=== PATIENT | male | born 1955 | race Caucasian/White ===

== ENCOUNTER 2017-03-24 21:00 | Emergency (ER) | payer BC ==
[2017-03-24 21:05] VITALS: BP 139/86
--- NOTE | 2017-03-24 21:38 | UC ---
Respiratory Complaint HPI - HPI Summary HPI Summary: right mid axilla rib pain after coughing hard earlier this week, no sob, no trauma injury - History of Current Complaint Chief Complaint: UCUpperExtremity Stated Complaint: RIB COMPLAINT Time Seen by Provider: 03/24/17 21:37 Hx Obtained From: Patient Onset/Duration: Sudden Onset, Lasting Days, Still Present Timing: Constant Severity Initially: Moderate Severity Currently: Moderate Aggravating Factors: Nothing Alleviating Factors: Nothing Associated Signs And Symptoms: Positive: Negative - Allergies/Home Medications Allergies/Adverse Reactions: Allergies Allergy/AdvReac Type Severity Reaction Status Date / Time Ciprofloxacin [From Cipro] Allergy Unknown Unknown Verified 05/25/14 16:11 Reaction Details PMH/Surg Hx/FS Hx/Imm Hx Previously Healthy: No - enviromental allergies GI/ History: Gastroesophageal Reflux - Surgical History Surgical History: Yes Surgery Procedure, Year, and Place: left inguinal hernia repair. tonsillectomy - Family History Known Family History: Positive: None - Social History Occupation: Employed Full-time Lives: With Family Alcohol Use: Occasionally Substance Use Type: None Smoking Status (MU): Never Smoked Tobacco Review of Systems Constitutional: Negative Skin: Negative Eyes: Negative ENT: Negative Respiratory: Negative Cardiovascular: Negative Gastrointestinal: Negative Genitourinary: Negative Motor: Negative Neurovascular: Negative Musculoskeletal: Arthralgia - right mid axilla rib pain Neurological: Negative Psychological: Negative All Other Systems Reviewed And Are Negative: Yes Physical Exam Triage Information Reviewed: Yes Appearance: Well-Appearing, No Pain Distress, Obese Vital Signs: Initial Vital Signs Temp 98.3 F 03/24/17 21:01 Pulse 88 03/24/17 21:01 Resp 18 03/24/17 21:01 BP 139/86 03/24/17 21:01 Pulse Ox 98 03/24/17 21:01 Vital Signs Reviewed: Yes Eye Exam: Normal Eyes: Positive: Conjunctiva Clear ENT Exam: Normal ENT: Positive: Normal ENT inspection, Hearing grossly normal, Pharynx normal. Negative: Nasal congestion, Nasal drainage, Trismus, Muffled/hoarse voice Dental Exam: Normal Neck exam: Normal Neck: Positive: Supple, Nontender, No Lymphadenopathy Respiratory Exam: Normal Respiratory: Positive: Chest non-tender, Lungs clear, Normal breath sounds, No respiratory distress, No accessory muscle use Cardiovascular Exam: Normal Cardiovascular: Positive: RRR, No Murmur, Pulses Normal, Brisk Capillary Refill Abdominal Exam: Normal Abdomen Description: Positive: Nontender, No Organomegaly, Soft Bowel Sounds: Positive: Present Musculoskeletal Exam: Normal Musculoskeletal: Positive: Strength Intact, ROM Intact, No Edema Neurological Exam: Normal Neurological: Positive: Alert, Muscle Tone Normal, Fatigued Psychological Exam: Normal Skin Exam: Normal UC Diagnostic Evaluation - Laboratory O2 Sat by Pulse Oximetry: 98 - Radiology Xray Interpretation: No Acute Changes Radiology Interpretation Completed By: Radiologist Respiratory Course/Dx - Course Course Of Treatment: ice/heat for comfort pain control, cough and deep breath follow with pcp - Differential Dx/Diagnosis Differential Diagnosis/HQI/PQRI: Asthma, Lower Resp Infection, Other - contusion fracture ribs Provider Diagnoses: contusion right ribs Discharge - Discharge Plan Condition: Stable Disposition: HOME Patient Education Materials: Ibuprofen (By mouth), Ice Pack Application (ED) Forms: *Work Release Referrals: Parul Berry MD [Primary Care Provider] - If Needed
--- NOTE | 2017-03-24 22:05 | RAD ---
Indication: Right-sided chest pain 3 views of the right ribs PA view of the chest demonstrates no definite fracture. No pneumothorax is noted. No alveolar consolidation is noted. Lung blair demonstrate no mediastinal shift. Heart is of normal size and configuration. No pneumothorax is noted. IMPRESSION: No fracture of the right ribs is noted.
== END 2017-03-24 22:16 | disposition home or self-care (01) ==
LOC: UCEAST 21:00
DX: S30.1XXA Contusion of abdominal wall, initial encounter (principal); Z88.3 Allergy status to other anti-infective agents; K21.9 Gastro-esophageal reflux disease without esophagitis; X58.XXXA Exposure to other specified factors, initial encounter
CPT/HCPCS: 99211; G0463

== ENCOUNTER 2017-10-25 10:16 | Emergency (ER) | payer BC ==
[2017-10-25] MEDS ORDERED: hydrOXYzine HCL TAB* 50 MG PO ONE (10:48)
[2017-10-25 12:50] VITALS: BP 120/82
--- NOTE | 2017-10-25 21:01 | ED ---
eBn Nagy Julia, scribed for Good Buckner MD on 10/25/17 at 1043 . Respiratory - HPI Summary HPI Summary: This patient is a 62 year old M presenting to [facility] with a chief complaint of dry throat and difficulty swallowing after excessive inhaler use this morning. He states he took two extras puffs of his inhaler accidentally. He reports a lot of mucous at baseline, but now he is having a hard time swallowing. He states he is recovering from a recent respiratory infection, and suffers from frequent respiratory infections. Patient has been taking 10mg of Prednisone, but has just changed to 5mg yesterday. Patient has hx of asthma. - History of Current Complaint Chief Complaint: EDGeneral Stated Complaint: THROAT PAIN Hx Obtained From: Patient Onset/Duration: Sudden Onset, Lasting Hours Timing: Constant Pain Intensity: 0 Aggravating Factor(s): Other - excessive inhaler use Associated Signs and Symptoms: URI - dry throat and difficulty swallowing Related History: Similar Episode/Dx as - URI and asthma - Allergy/Home Medications Allergies/Adverse Reactions: Allergies Allergy/AdvReac Type Severity Reaction Status Date / Time ciprofloxacin Allergy Unknown Verified 10/25/17 10:51 Reaction Details esomeprazole [From Nexium] Allergy Rash Verified 10/25/17 10:51 PMH/Surg Hx/FS Hx/Imm Hx Endocrine/Hematology History: Denies: Hx Diabetes, Hx Thyroid Disease Cardiovascular History: Reports: Other Cardiovascular Problems/Disorders - HIGH PAC Denies: Hx Congestive Heart Failure, Hx Hypertension Respiratory History: Reports: Hx Asthma, Hx Sleep Apnea, Other Respiratory Problems/Disorders - frequent URI Denies: Hx Chronic Obstructive Pulmonary Disease (COPD) GI History: Reports: Hx Gastroesophageal Reflux Disease Denies: Hx Ulcer - Surgical History Surgery Procedure, Year, and Place: left inguinal hernia repair. tonsillectomy Infectious Disease History: No Infectious Disease History: Denies: Hx Clostridium Difficile, Hx Hepatitis, Hx Human Immunodeficiency Virus (HIV), Hx of Known/Suspected MRSA, Hx Shingles, Hx Tuberculosis, Hx Known/ Suspected VRE, Hx Known/Suspected VRSA, History Other Infectious Disease, Traveled Outside the [place] in Last 30 Days - Family History Known Family History: Negative: Respiratory Disease - Social History Alcohol Use: Occasionally Substance Use Type: Reports: None Hx Tobacco Use: No Smoking Status (MU): Never Smoked Tobacco Review of Systems Negative: Fever Positive: Other - dry throat and difficulty swallowing All Other Systems Reviewed And Are Negative: Yes Physical Exam - Summary Physical Exam Summary: Appearance: The patient is well-nourished in no acute distress and in no acute pain. Skin: The skin is warm and dry and skin color reflects adequate perfusion. HEENT: The head is normocephalic and atraumatic. The pupils are equal and reactive. The conjunctivae are clear and without drainage. Nares are patent and without drainage. Mouth reveals moist mucous membranes and the throat is without erythema and exudate. The external ears are intact. The ear canals are patent and without drainage. The tympanic membranes are intact. Neck: the neck is supple with full range of motion and non-tender. There are no carotid bruits. There is no neck vein distension. Respiratory: Chest is non-tender. Lungs are clear to auscultation and breath sounds are symmetrical and equal. Cardiovascular: Heart is mildly tachycardic and regular rhythm. There is no murmur or rub auscultated. There is no peripheral edema and pulses are symmetrical and equal. Abdomen: The abdomen is soft and non-tender. There are normal bowel sounds heard in all four quadrants and there is no organomegaly palpated. Musculoskeletal: There is no back tenderness noted. Extremities are non-tender with full range of motion. There is good capillary refill. There is no peripheral edema or calf tenderness elicited. Neurological: Patient is alert and oriented to person, place and time. The patient has symmetrical motor strength in all four extremities. Cranial nerves are grossly intact. Deep tendon reflexes are symmetrical and equal in all four extremities. Psychiatric: The patient has an appropriate affect and does not exhibit any anxiety or depression. Triage Information Reviewed: Yes Vital Signs On Initial Exam: Initial Vitals Temp Pulse Resp BP Pulse Ox 97.8 F 118 22 198/104 97 10/25/17 10:21 10/25/17 10:21 10/25/17 10:21 10/25/17 10:21 10/25/17 10:21 Vital Signs Reviewed: Yes Diagnostics - Vital Signs Vital Signs Temp Pulse Resp BP Pulse Ox 10/25/17 10:39 123 100 10/25/17 10:38 181/102 10/25/17 10:21 97.8 F 118 22 198/104 97 - Laboratory Lab Statement: Any lab studies that have been ordered have been reviewed, and results considered in the medical decision making process. Disposition - Course Course Of Treatment: Mr. Pastrana presented very anxious after using too much of his inhaler. He was C/O a dry throat with inability to swallow. He has been fighting a URI and is at the tail end. He was hypertensive and tachycardia on arrival with clear lungs. I gave him vistaril for its antihistamine effects as well as anxiolytic and he improved and his vitals normalized. - Diagnoses Provider Diagnoses: Medication reaction Discharge - Discharge Plan Condition: Stable Disposition: HOME Patient Education Materials: How to Use a Dry-Powder Inhaler (ED) Referrals: Parul Berry MD [Primary Care Provider] - If Needed The documentation as recorded by the Ben mercado Julia accurately reflects the service I personally performed and the decisions made by me, Good Buckner MD.
== END 2017-10-25 12:58 | disposition home or self-care (01) ==
LOC: ED 10:16
DX: T50.995A Adverse effect of other drugs, medicaments and biological substances, initial encounter (principal); J45.909 Unspecified asthma, uncomplicated; K21.9 Gastro-esophageal reflux disease without esophagitis
CPT/HCPCS: 99282; A9270-GY

== ENCOUNTER 2018-04-15 19:15 | Emergency (ER) | payer BC ==
--- OUTSIDE RECORDS SUMMARY | 2018-04-15 19:19 | XMS REPORT ---
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 Parul Berry MD Primary Care Physician Unavailable Payers Type Date Identification Numbers Payment Provider Subscriber Commercial Policy Number: [id number] [employer] Rigoberto Pastrana PayID: [id number] [place] [address] Medigap Part B Expires: 2017 Policy Number: [facility] Rigoberto Styles [id number] Ppo Victoriano PayID: [id number] [place] [address] Problems Description No Information Family History Date Family Member(s) Problem(s) Comments Father Unknown Father due to Natural Causes () Mother rheumatic fever Mother due to CHF () Siblings 2 half siblings, medical hx unknown Social History Type Date Description Comments Marital Status Significant Other 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 Cigarette Use Never Smoked Cigarettes ETOH Use Rarely consumes alcohol Smoking Patient has never smoked Recreational Drug Use Denies Drug Use Daily Caffeine Consumes on average 5-10 cups of regular coffee per day Exercise Type/Frequency Exercises regularly Allergies, Adverse Reactions, Alerts Date Description Reaction Status Severity Comments 12/25/2017 Cipro active 12/25/2017 Nexium active 04/10/2018 Advair Throat felt scratching active Moderate Throat Also Zenda Like It Was Starting To Close Medications Medication Date Status Form Strength Qnty SIG Indications Ordering Provider Flovent HFA 01/09/ Active Aerosol 110mcg/Act 36gm 2 puffs Siobhan 2017 twice a day MD Alee Venturadine HCL / Active Tablets 150mg Take 1 To 2 Unknown 0000 Tablets By Mouth Every Day Fluticasone / Active Suspension 50mcg/Act 2 sprays Jamal, Propionate 0000 qhs Parul Sauceda MD Proair HFA / Active Aerosol 108(90Base 2 puffs prn Jamal, 0000 ) mcg/Act Parul Sauceda MD Allergy / Active 1 injection Unknown Injections 0000 per week Xyzal 01/21/ Hx Solution 2.5mg/5ML as directed Siobhan 2018 - Audrey, 04/09/ 2017 Escitalopram / Hx Tablets 10mg Take 1 Unknown Oxalate 0000 - Tablet By 01/08/ Mouth Every 2017 Day Vital Signs Date Vital Result Comment 04/10/2018 Height 70.25 inches 5'10.25" Weight 254.12 lb Heart Rate 76 /min BP Systolic Sitting 110 mmHg Lue large cuff BP Diastolic Sitting 76 mmHg Lue large cuff Respiratory Rate 16 /min O2 % BldC Oximetry 98 % BMI (Body Mass Index) 36.2 kg/m2 01/21/2018 Height 70.25 inches 5'10.25" Weight 258.50 lb Heart Rate 92 /min BP Systolic Sitting 122 mmHg Rue large cuff BP Diastolic Sitting 82 mmHg Rue large cuff Respiratory Rate 16 /min O2 % BldC Oximetry 95 % BMI (Body Mass Index) 36.8 kg/m2 12/25/2017 Height 70.25 inches 5'10.25" Weight 255.00 lb Heart Rate 76 /min BP Systolic Sitting 138 mmHg BP Diastolic Sitting 98 mmHg Respiratory Rate 14 /min O2 % BldC Oximetry 95 % BMI (Body Mass Index) 36.3 kg/m2 Neck Circumference in inches 17.5 Results Description No Information Procedures Date CPT Code Description Status 01/08/2018 15519 Diffusing Capacity Completed 01/08/2018 84377 Plethysmography Determination Lung Volumes & Per Airway Completed Resist 01/08/2018 96784 Pulmonary Function><Bronchodil Completed 11/09/2017 88792 Holter Monitor Review (24 hr)dr zee & interp only Completed 02/23/2012 33982 Polysomnography Sleep Staging 4+ Parameters W/Cpap Completed 02/23/2012 43672 Polysomnography Sleep Staging 4+ Parameters W/Cpap Completed 05/28/2007 55257 EKG, Interpretation Only Completed 05/28/2007 70909 EKG, Interpretation Only Completed Encounters Type Date Location Provider CPT E/M Dx Office Visit 01/21/2018 [facility] [place] [address] J45.30 1:15p [facility] G47.33 E66.09 Office Visit 12/25/2017 2:00p [facility] [place] [address] G47.33 [facility] J45.909 K21.9 E66.09 Z68.36 Office Visit 03/08/2012 3:41p [facility], [address] 327.23 Disorder Center M.D. Plan of Care Future Appointment(s):07/11/2018 3:00 pm - Siobhan Ventura MD at [facility]04/10/2018 - Gilma Long, DNP, RN, MAINTENANCE SUPERVISOR MECHANICAL-BCG47.33 Obstructive sleep apnea (adult) (pediatric)New Orders:Sleep-HomecareComments: Sleep Apnea - 12/31/17 HST AHI 36.7/hour, seb oxygen 78% (<90% 213.7 min) BMI 36.8, wt 258# OnCPAP auto AHI 1.7/hourRecommendations:Continue PAP device, Benefitting and compliant with treatment. Cleaning Wipe off mask daily (baby wipe-no scent, or warm water) Clean mask, tubing, filter, and water chamber weekly in mild no scent dish soap and water. Hang to dry. So-Clean is an option (not covered by insurance) If you have any sleepiness while driving you MUST avoid operating a vehicle or machinery. If you have difficulty with your equipment, or need to replace your mask or hoses, please contact your homecare agency. A weight change of 20 pounds or more may have an effect on your equipment; if you are experiencing problems please call for an appointment. If you have any further questions, please call the [facility] at [phone].J45.30 Mild persistent asthma, uncomplicatedFollow up:[address] VenturaRecommendations:Continue the current medications. Discuss with Dr. Ventura at your next visit stepping down on dose if appropriate. Sometimes after the first heavy al you might be able to try a lower dose.R09.02 HypoxemiaNew Orders:Pulse Oximetry OvernightRecommendations:Overnight pulse oximetry, call one week after completed for results, may need to adjust the PAP setting.Z68.36 Body mass index (BMI) 36.0-36.9, adultRecommendations:Avoid weight gain
[2018-04-15 19:23] VITALS: BP 123/82
[2018-04-15] MEDS ORDERED: oxyCODONE TAB* 5 MG TAB PO ONE (19:55)
[2018-04-15] MEDS ORDERED: HYDROcodone/ACETAMIN 5-325 MG* 1 TAB PO ONE ×2 (19:56→19:58)
--- NOTE | 2018-04-15 20:04 | UC ---
UC Dental HPI - HPI Summary HPI Summary: Patient complaining of left lower dental pain starting Sunday. Denies fever, sore throat, N/V, purulent drainage, loss of jaw range of motion, neck pain, ear pain. Patient able to tolerate soft diet and fluids. Patient contacted dentist today, started on clindamycin today. Patient has been taking ibuprofen and Tylenol for pain with only mild relief. Patient will attempt to see dentist tomorrow, but is asking for pain relief for this evening. Medical history is asthma, sleep apnea. - History of Current Complaint Chief Complaint: UCDentalProblem Stated Complaint: DENTAL PAIN Time Seen by Provider: 04/15/18 19:28 Hx Obtained From: Patient, Family/Manager Group Onset/Duration: Gradual Onset Severity: Moderate Pain Intensity: 7 Pain Scale Used: 0-10 Numeric Aggravating Factor(s): Chewing Alleviating Factor(s): OTC Meds - Allergies/Home Medications Allergies/Adverse Reactions: Allergies Allergy/AdvReac Type Severity Reaction Status Date / Time fluticasone Allergy Severe THROAT Verified 04/16/18 22:21 [From Advair Diskus] TIGHTENING salmeterol Allergy Severe THROAT Verified 04/16/18 22:21 [From Advair Diskus] TIGHTENING ciprofloxacin Allergy Unknown Verified 04/16/18 22:21 Reaction Details esomeprazole [From Nexium] Allergy Rash Verified 04/16/18 22:21 Home Medications: Home Medications Acetaminophen [Extra Strength Non-Aspirin] 500 mg PO Q6HR PRN 04/15/18 [History] Clindamycin Cap(NF) [Clindamycin Cap 300 mg Cap(NF)] 300 mg PO TID 04/15/18 [ History Confirmed 04/15/18] Ibuprofen TAB* [Advil TAB*] 600 mg PO Q6HR PRN 04/15/18 [History] PMH/Surg Hx/FS Hx/Imm Hx Previously Healthy: Yes Respiratory History: Asthma - Surgical History Surgical History: Yes Surgery Procedure, Year, and Place: left inguinal hernia repair. tonsillectomy - Family History Known Family History: Positive: None Negative: Respiratory Disease - Social History Alcohol Use: Occasionally Substance Use Type: None Smoking Status (MU): Never Smoked Tobacco Review of Systems Constitutional: Negative Skin: Negative Eyes: Negative ENT: Dental Pain Respiratory: Negative Cardiovascular: Negative Gastrointestinal: Negative Genitourinary: Negative Motor: Negative Neurovascular: Negative Musculoskeletal: Negative Neurological: Negative Psychological: Negative Is Patient Immunocompromised?: No All Other Systems Reviewed And Are Negative: Yes Physical Exam - Summary Physical Exam Summary: No evidence of dental abscess. No oral lesions. Triage Information Reviewed: Yes Appearance: Well-Appearing Vital Signs: Initial Vital Signs Temp 97.3 F 04/15/18 19:19 Pulse 78 04/15/18 19:19 Resp 16 04/15/18 19:19 BP 123/82 04/15/18 19:19 Pulse Ox 99 04/15/18 19:19 Vital Signs Reviewed: Yes Eye Exam: Normal ENT Exam: Normal Dental: Positive: Percussion Tenderness @. Negative: Dental Fracture @, Abscess @ Neck exam: Normal Respiratory Exam: Normal Cardiovascular Exam: Normal Abdominal Exam: Normal Musculoskeletal Exam: Normal Neurological Exam: Normal Psychological Exam: Normal Skin Exam: Normal Dental Complaint Course/Dx - Course Course Of Treatment: Patient complaining of left lower dental pain starting Sunday. Denies fever, sore throat, N/V, purulent drainage, loss of jaw range of motion, neck pain, ear pain. Patient able to tolerate soft diet and fluids. Patient contacted dentist today, started on clindamycin today. Patient has been taking ibuprofen and Tylenol for pain with only mild relief. Patient will attempt to see dentist tomorrow, but is asking for pain relief for this evening. Medical history is asthma, sleep apnea. Physical exam:No evidence of dental abscess. No oral lesions. Vital signs normal. Patient started on hydrocortisone here in the ED. Lung Control. Patient States He Will Attempt to Arrange Appointment with Dentist Tomorrow. Already Taking Clindamycin. - Differential Dx/Diagnosis Provider Diagnoses: Dental pain Discharge - Sign-Out/Discharge Documenting (check all that apply): Patient Departure All imaging exams completed and their final reports reviewed: Yes - Discharge Plan Condition: Stable Disposition: HOME Patient Education Materials: Toothache (ED) Referrals: Parul Berry MD [Primary Care Provider] - Additional Instructions: Follow-up with your dentist tomorrow. Take antibiotics as directed. - Billing Disposition and Condition Condition: STABLE Disposition: Home - Attestation Statements Provider Attestation: Per institutional requirements, I have reviewed the chart, however, I was not consulted specifically or made aware of this patient by the midlevel provider. I did not personally evaluate, interact with , or disposition this patient.
== END 2018-04-15 20:30 | disposition home or self-care (01) ==
LOC: UCEAST 19:15
DX: K08.89 Other specified disorders of teeth and supporting structures (principal); J45.909 Unspecified asthma, uncomplicated; Z88.1 Allergy status to other antibiotic agents; Z88.8 Allergy status to other drugs, medicaments and biological substances
CPT/HCPCS: 99212; A9270-GY; G0463

== ENCOUNTER 2018-04-16 22:12 | Emergency (ER) | payer BC ==
[2018-04-16] MEDS ORDERED: oxyCODONE TAB* 5 MG TAB PO ONE (23:04)
--- NOTE | 2018-04-16 23:23 | ED ---
Throat Pain/Nasal Congestion - HPI Summary HPI Summary: 62-year-old male presents with dental pain for the past days. He states he developed the symptoms a couple days ago and he went to the dentist today and had x-ray done that shows that he has infection. He has been a Clindamycin for the past couple days. He states that he has an appointment on to have the tooth removed. He states his dentist wanted him to have the clindamycin for a couple more days. He states been taking Tylenol and ibuprofen and hasn' t been able to control his pain. He states he needs something more for the pain. Denies any fevers. He denies any chest pressure or shortness of breath. No difficulty swallowing. He is still able to eat and drink. - History of Current Complaint Chief Complaint: EDDentalPain Time Seen by Provider: 04/16/18 22:46 - Allergies/Home Medications Allergies/Adverse Reactions: Allergies Allergy/AdvReac Type Severity Reaction Status Date / Time fluticasone Allergy Severe THROAT Verified 04/16/18 22:21 [From Advair Diskus] TIGHTENING salmeterol Allergy Severe THROAT Verified 04/16/18 22:21 [From Advair Diskus] TIGHTENING ciprofloxacin Allergy Unknown Verified 04/16/18 22:21 Reaction Details esomeprazole [From Nexium] Allergy Rash Verified 04/16/18 22:21 Home Medications: Home Medications Fluticasone HFA 110 mcg(NF) [Flovent HFA 110 mcg(NF)] 2 puff INH BID 04/16/18 [ History Confirmed 04/16/18] PMH/Surg Hx/FS Hx/Imm Hx Endocrine/Hematology History: Denies: Hx Diabetes, Hx Thyroid Disease Cardiovascular History: Reports: Other Cardiovascular Problems/Disorders - HIGH PAC Denies: Hx Congestive Heart Failure, Hx Hypertension Respiratory History: Reports: Hx Asthma, Hx Sleep Apnea, Other Respiratory Problems/Disorders - frequent URI Denies: Hx Chronic Obstructive Pulmonary Disease (COPD) GI History: Reports: Hx Gastroesophageal Reflux Disease Denies: Hx Ulcer - Surgical History Surgery Procedure, Year, and Place: left inguinal hernia repair. tonsillectomy - Immunization History Date of Tetanus Vaccine: < 10 years Date of Influenza Vaccine: 3883-9732 Immunizations Up to Date: Yes Infectious Disease History: No Infectious Disease History: Denies: Hx Clostridium Difficile, Hx Hepatitis, Hx Human Immunodeficiency Virus (HIV), Hx of Known/Suspected MRSA, Hx Shingles, Hx Tuberculosis, Hx Known/ Suspected VRE, Hx Known/Suspected VRSA, History Other Infectious Disease, Traveled Outside the [place] in Last 30 Days - Family History Known Family History: Positive: None Negative: Respiratory Disease - Social History Alcohol Use: Occasionally Substance Use Type: Reports: None Hx Tobacco Use: No Smoking Status (MU): Never Smoked Tobacco Review of Systems Negative: Fever Positive: Dental Pain Negative: Chest Pain Negative: Shortness Of Breath All Other Systems Reviewed And Are Negative: Yes Physical Exam Triage Information Reviewed: Yes Vital Signs On Initial Exam: Initial Vitals Temp Pulse Resp BP Pulse Ox 98.1 F 75 16 140/84 94 04/16/18 22:15 04/16/18 22:15 04/16/18 22:15 04/16/18 22:15 04/16/18 22:15 Vital Signs Reviewed: Yes Appearance: Positive: Well-Appearing Skin: Positive: Warm, Dry Head/Face: Positive: Normal Head/Face Inspection Eyes: Positive: Normal, Conjunctiva Clear ENT: Positive: Pharynx normal Dental: Positive: Percussion Tenderness @ - 21 Respiratory/Lung Sounds: Positive: Clear to Auscultation, Breath Sounds Present Cardiovascular: Positive: Normal, RRR Musculoskeletal: Positive: Normal Neurological: Positive: Normal Psychiatric: Positive: Normal Diagnostics - Vital Signs Vital Signs Temp Pulse Resp BP Pulse Ox 04/16/18 22:15 98.1 F 75 16 140/84 94 - Laboratory Lab Statement: Any lab studies that have been ordered have been reviewed, and results considered in the medical decision making process. EENT Course/Dx - Course Course Of Treatment: 62-year-old male presents with dental pain for the past days. He states he developed the symptoms a couple days ago and he went to the dentist today and had x-ray done that shows that he has infection. He has been a Clindamycin for the past couple days. He states that he has an appointment on to have the tooth removed. He states his dentist wanted him to have the clindamycin for a couple more days. He states been taking Tylenol and ibuprofen and hasn't been able to control his pain. He states he needs something more for the pain. Denies any fevers. He denies any chest pressure or shortness of breath. No difficulty swallowing. He is still able to eat and drink. On exam has tenderness on tooth 21. Some edema noted no abscess felt. We'll continue Clinda. Gave course of pain medication. Patient has follow up with dentist. Patient understands agrees the plan. - Differential Diagnoses Differential Diagnoses: Dental Abscess, Dental Caries, Fractured Tooth - Diagnoses Provider Diagnoses: Dental infection Discharge - Sign-Out/Discharge Documenting (check all that apply): Patient Departure - Discharge Plan Condition: Good Disposition: HOME Prescriptions: oxyCODONE TAB* [Roxycodone TAB 5 mg*] 5 mg PO Q6H PRN #8 tab MDD 4 PRN Reason: Pain Patient Education Materials: Dental Abscess (ED) Referrals: Parul Berry MD [Primary Care Provider] - Additional Instructions: continue antibiotic Use ibuprofen or tyenlol every 6 hours and narcotic every 6 hours for break through pain Avoid hard, crunchy food until seen by dentist Follow up with dentist as soon as possible Return to ED if develop fever, shortness of breath, pain with eye movement or swelling around eye - Billing Disposition and Condition Condition: GOOD Disposition: Home Images - Images Dental: 1 - pain
[2018-04-17 00:47] VITALS: BP 143/78
== END 2018-04-17 00:20 | disposition home or self-care (01) ==
LOC: ED 22:12
DX: K04.7 Periapical abscess without sinus (principal); Z88.1 Allergy status to other antibiotic agents; Z88.8 Allergy status to other drugs, medicaments and biological substances
CPT/HCPCS: 99282; A9270-GY

== ENCOUNTER 2018-08-05 16:28 | Emergency (ER) | payer BC ==
--- NOTE | 2018-08-05 16:55 | ED ---
HPI Chest Pain - HPI Summary HPI Summary: This patient is a 63 year old M presenting to [facility] with a chief complaint of chest heaviness that radiates into his left ear and jaw today at 1600. Pt states right before arrival he was walking around [employer] and felt light headedness when he noticed racing palpitations. The patient rates the pain 2/10 in severity. Patient reports chills and general malaise. He states he has not eaten or drank much water today. Hx ventricular tachycardia. Denies hx afib, states hx vtach. PVCs seen on monitor in the room during exam. Pt denies LE edema, ABD pain, and hx of blood clots. - History of Current Complaint Chief Complaint: EDDysrhythmPalp Time Seen by Provider: 08/05/18 16:43 Hx Obtained From: Patient Onset/Duration: Started Hours Ago, Still Present Time of Onset: 16:00 Timing: Constant Initial Severity: Mild Current Severity: Mild Pain Intensity: 2 Pain Scale Used: 0-10 Numeric Chest Pain Location: Diffuse Chest Pain Radiates: Yes Chest Pain Radiates To:: Jaw, Neck Character: Pressure/Squeezing Associated Signs and Symptoms: Positive: Negative - LE edema and ABD pain, Chest Pain, Chills - Allergy/Home Medications Allergies/Adverse Reactions: Allergies Allergy/AdvReac Type Severity Reaction Status Date / Time fluticasone Allergy Severe THROAT Verified 08/05/18 16:44 [From Advair Diskus] TIGHTENING salmeterol Allergy Severe THROAT Verified 08/05/18 16:44 [From Advair Diskus] TIGHTENING ciprofloxacin Allergy Unknown Verified 08/05/18 16:44 Reaction Details esomeprazole [From Nexium] Allergy Rash Verified 08/05/18 16:44 PMH/Surg Hx/FS Hx/Imm Hx Endocrine/Hematology History: Denies: Hx Diabetes, Hx Thyroid Disease Cardiovascular History: Reports: Other Cardiovascular Problems/Disorders - HIGH PAC Denies: Hx Congestive Heart Failure, Hx Hypertension Respiratory History: Reports: Hx Asthma, Hx Sleep Apnea, Other Respiratory Problems/Disorders - frequent URI Denies: Hx Chronic Obstructive Pulmonary Disease (COPD) GI History: Reports: Hx Gastroesophageal Reflux Disease Denies: Hx Ulcer Sensory History: Reports: Hx Contacts or Glasses Opthamlomology History: Reports: Hx Contacts or Glasses - Surgical History Surgery Procedure, Year, and Place: left inguinal hernia repair. tonsillectomy - Immunization History Date of Tetanus Vaccine: < 10 years Date of Influenza Vaccine: [id number] Infectious Disease History: No Infectious Disease History: Denies: Hx Clostridium Difficile, Hx Hepatitis, Hx Human Immunodeficiency Virus (HIV), Hx of Known/Suspected MRSA, Hx Shingles, Hx Tuberculosis, Hx Known/ Suspected VRE, Hx Known/Suspected VRSA, History Other Infectious Disease, Traveled Outside the [place] in Last 30 Days - Family History Known Family History: Negative: Hypertension, Respiratory Disease - Social History Occupation: Employed Full-time Lives: With Family Alcohol Use: Occasionally Substance Use Type: Reports: None Hx Tobacco Use: No Smoking Status (MU): Never Smoked Tobacco Review of Systems Constitutional: Other - general malaise. Positive: Chills Positive: Palpitations, Chest Pain Negative: Abdominal Pain Negative: Edema Neurological: Other - lightheadedness All Other Systems Reviewed And Are Negative: Yes Physical Exam - Summary Physical Exam Summary: General: well-appearing, no pain distress Skin: warm, color reflects adequate perfusion, dry Head: normal Eyes: EOMI, SCOTT ENT: normal Neck: supple, nontender Respiratory: CTA, breath sounds present Cardiovascular: mildly tachycardia but regular Abdomen: soft, nontender Bowel: present Musculoskeletal: normal, strength/ROM intact Neurological: sensory/motor intact, A&O x3 Psychological: affect/mood appropriate Triage Information Reviewed: Yes Vital Signs On Initial Exam: Initial Vitals Temp Pulse Resp BP Pulse Ox 98.6 F 117 25 142/97 97 08/05/18 16:33 08/05/18 16:33 08/05/18 16:33 08/05/18 16:33 08/05/18 16:33 Vital Signs Reviewed: Yes Diagnostics - Vital Signs Vital Signs Temp Pulse Resp BP Pulse Ox 08/05/18 16:33 98.6 F 117 25 142/97 97 - Laboratory Result Diagrams: 08/05/18 16:53 08/05/18 16:53 Lab Statement: Any lab studies that have been ordered have been reviewed, and results considered in the medical decision making process. - Radiology CXR Radiology Interpretation Completed By: Radiologist Summary of Radiographic Findings: no active cardiopulmonary disease. ED physician has reviewed this radiology report. - EKG 1642 Cardiac Rate: Tachycardia EKG Rhythm: Sinus Tachycardia - at [address] Segment: Normal Summary of EKG Findings: premature atrial complex Chest Pain Course/Dx - Course Course Of Treatment: I discussed the results with the patient in the emergency department. On his EKG he had some PACs. On the monitor he had some isolated PVCs. I gave him 40 mEq of potassium in the emergency department. I discussed admission for the jaw discomfort, palpitations and lightheadedness. Patient declined admission at this time. He reports he is feels back to normal at time of discharge. Patient will return to the emergency department for any worsening of his condition or questions or concerns. - Diagnoses Provider Diagnoses: Chest pain, Palpitations, Hyperglycemia, Hypokalemia, Premature atrial contractions, PVCs (premature ventricular contractions) Discharge - Sign-Out/Discharge Documenting (check all that apply): Patient Departure - Discharge Plan Condition: Stable Disposition: HOME Patient Education Materials: Chest Pain (ED), Heart Palpitations (ED), Nondiabetic Hyperglycemia (ED), Premature Ventricular Contractions (ED), Premature Atrial Contractions (ED) Referrals: Parul Berry MD [Primary Care Provider] - Additional Instructions: FOLLOW UP WITH YOUR DOCTOR. RETURN TO THE EMERGENCY DEPARTMENT FOR ANY WORSENING OF YOUR CONDITION; CHEST PAIN, SHORTNESS OF BREATH, YOU FEEL ILL, YOU FEEL LIKE PASSING OUT OR QUESTIONS OR CONCERNS. - Billing Disposition and Condition Condition: STABLE Disposition: Home - Attestation Statements Provider For Whom Faviola is Documenting (Include Credential): Russell Grossman MD
[2018-08-05] MEDS ORDERED: NS 0.9% 1000 ML* 1,000 ML IV ONE (16:56)
[2018-08-05] MEDS ORDERED: Aspirin 81 mg CHEW TAB* 81 MG TAB.CHEW PO ONE (16:56)
--- OUTSIDE RECORDS SUMMARY | 2018-08-05 17:03 | XMS REPORT | Continuity of Care Document ---
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 Parul Berry MD Primary Care Physician Unavailable Payers Type Date Identification Numbers Payment Provider Subscriber Policy Number: [id number] BS [employer] Rigoberto Pastrana PayID: [id number] [address] [address] [place] [address] Advance Directives Description No Information Available Problems Date Description Provider Status Onset: 09/07/2017 Allergic rhinitis due to pollen Jhonatan Lamb MD Active Onset: 09/07/2017 Allergic rhinitis Jhonatan Lamb MD Active Onset: 09/07/2017 Uncomplicated moderate Jhonatan Lamb MD Active persistent asthma Onset: 01/11/2018 Dietetic gastroenteritis Jhonatan Lamb MD Active Onset: 01/11/2018 Allergy to other foods Jhonatan Lamb MD Active Onset: 07/17/2018 Candidiasis of mouth Becky Rodriguez, Active RPA-C Family History Date Family Member(s) Problem(s) Comments General Unknown Social History Type Date Description Comments Sex Unknown Home Environment Has a window air conditioner Home Environment Musty Basement Home Environment The basement is damp and sump pump used Home Environment The basement is damp and dehumidifier used Home Environment The floors are wood Home Environment Uses oil heating Home Environment Uses forced air heating Smoke-Free Home is smoke-free Pets 1 dog Pets Animals sleep in bedroom Tobacco Use Start: Unknown No Second Hand Smoke Exposure Tobacco Use Start: Unknown Patient has never smoked Smoking Status Reviewed: 07/17/18 Patient has never smoked Allergies, Adverse Reactions, Alerts Date Description Reaction Status Severity Comments 09/07/2017 Ciprofloxacin Active 10/26/2017 Nexium Active Medications Medication Date Status Form Strength Qnty SIG Indications Ordering Provider Nystatin 07/17 Active Suspension [id number] 150ml Swish and B37.0 t/ML swallow Balta Lamb MD 5ml by mouth 4x daily x7 days. Retain in mouth as long as possible before swallowing . Aerochamber 07/17 Active Misc 1unit use J45.40 Christopher s aerochambe Balta Lamb MD r as directed with your inhalers. Proair HFA 09/07 Active Aerosol 108(90Bas 1unit 2 puffs J30.1 e) s every 4 as Balta Lamb MD mcg/Act needed Ranitidine HCL Active Tablets 150mg Unknown Flonase Active Suspension 50mcg/Act 15.80 2 puffs Christopher Allergy Relief / 0ml each Balta Lamb MD nostril every day Flovent HFA Active Aerosol 110mcg/Ac inhale 2 Unknown t puffs (220 mcg) by inhalation route 2 times per day Albuterol Active Nebulizer 0.63mg/3M Audrey, Sulfate L MD Siobhan Vitamin D3 Active Capsules [id number] Take 1 Unknown Capsule By Mouth Once Weekly For 8 Weeks Prednisone 07/09 Hx Tablets 10mg 18tab take 3 s tablets by Balta Lamb MD - mouth 07/17 twice a day for 3 days. take with food. Prednisone 05/03 Hx Tablets 5mg 36tab 6 tablets s (30 mg) by Balta Lamb MD - mouth 07/17 twice a day x 3 days Clarinex 03/11 Hx Tablets 5mg 30tab one tablet s every in Balta Lamb MD - the 07/17 Fexofenadine 03/04 Hx Tablets 180mg 30tab take 1 er HCL s tablet by Balta Lamb MD - mouth 07/17 every day as needed Qnasl 09/07 Hx Aerosol 80mcg/Act 8.700 2 puffs J30.1 oph /2017 gm each Balta Lamb MD - nostril 10/26 Xyzal Allergy 09/07 Hx Tablets 5mg 30tab take 1 J30.1 Christopher 24H s tablet (5 Balta Lamb MD - mg) by 07/17 oral route once daily as needed Breo Ellipta 09/07 Hx Aerosol 200-25mcg 1unit inhale one J30.1 Christopher /2017 /Inh s puff once Balta Lamb MD - a day 01/11 Ventolin HFA Hx Aerosol 108(90Bas Sarai-Wh /0000 e) ite, Deisy - mcg/Act 01/11 Fluticasone Hx Suspension 50mcg/Act Jamal, Propionate / MD Parul - 09/10 Mupirocin Hx Ointment 2% Jamal MD Parul - 07/17 Afluria Hx Suspension 2017- Vladimir Nelson Quadrivalent / MD Jess - 07/17 Oxycodone HCL Hx Tablets 5mg Unknown / - 07/17 Clindamycin Hx Capsules 300mg Unknown HCL /0000 - 07/17 Triamcinolone Hx Cream 0.1% Apply To Unknown Acetonide /0000 Rash On - Legs Two 07/17 Daily For Up To 2 Weeks as Needed Montelukast Hx Tablets 10mg Take 1 Unknown Sodium /0000 Tablet By - Mouth 07/17 Escitalopram Hx Tablets 10mg Take 1 Unknown Oxalate /0000 Tablet By - Mouth 07/17 Escitalopram Hx Tablets 5mg Take 1 Unknown Oxalate /0000 Tablet By - Mouth 07/17 Breo Ellipta Hx Aerosol 200-25mcg Inhale 1 Unknown /0000 /Inh puff By - Mouth 07/17 Doxycycline Hx Capsules 100mg Take 1 Unknown Hyclate /0000 Capsule By - Mouth Two 07/17 Times Daily Azithromycin Hx Tablets 250mg Jamal, /0000 MD Parul - 07/17 Oseltamivir Hx Capsules 75mg Jamal, Phosphate /0000 MD Parul - 07/17 Medications Administered in Office Medication Date Status Form Strength Qnty SIG Indications Ordering Provider Allergy 07/17/ Administered Injection Christopher Injection 2017 Balta Lamb MD Single Allergy 07/08/ Administered Injection Christopher Injection 2017 Balta Lamb MD Single Allergy 07/01/ Administered Injection Christopher Injection 2017 Balta Lamb MD Single Allergy 06/24/ Administered Injection Christopher Injection 2017 Balta Lamb MD Single Allergy 06/17/ Administered Injection Christopher Injection 2017 Balta Lamb MD Single Allergy 06/10/ Administered Injection Christopher Injection 2017 Balta Lamb MD Single Allergy 06/03/ Administered Injection Christopher Injection 2017 Balta Lamb MD Single Allergy 05/27/ Administered Injection Christopher Injection 2017 Balta Lamb MD Single Allergy 05/22/ Administered Injection Christopher Injection 2017 Balta Lamb MD Single Allergy 05/13/ Administered Injection Christopher Injection 2017 Balta Lmab MD Single Allergy 05/10/ Administered Injection Christopher Injection 2017 Balta Lamb MD Single Allergy 04/26/ Administered Injection Christopher Injection 2017 Balta Lamb MD Single Allergy 04/17/ Administered Injection Christopher Injection 2018 Balta Lamb MD Single Allergy 04/10/ Administered Injection Christopher Injection 2018 Balta Lamb MD Single Allergy 04/03/ Administered Injection Christopher Injection 2018 Balta Lamb MD Single Allergy 03/27/ Administered Injection Christopher Injection 2017 Balta Lamb MD Single Allergy 03/20/ Administered Injection Christopher Injection 2017 Balta Lamb MD Single Allergy 03/11/ Administered Injection Christopher Injection 2017 Balta Lamb MD Single Allergy 03/04/ Administered Injection Christopher Injection 2017 Balta Lamb MD Single Allergy 02/25/ Administered Injection Christopher Injection 2017 Balta Lamb MD Single Allergy 02/18/ Administered Injection Christopher Injection 2017 Balta Lamb MD Single Allergy 02/08/ Administered Injection Christopher Injection 2017 Balta Lamb MD Single Allergy 02/01/ Administered Injection Christopher Injection 2017 Balta Lamb MD Single Allergy 01/21/ Administered Injection Christopher Injection 2017 Balta Lamb MD Single Allergy 01/14/ Administered Injection Christopher Injection 2017 Balta Lamb MD Single Allergy 01/09/ Administered Injection Christopher Injection 2017 Balta Lamb MD Single Allergy 12/31/ Administered Injection Christopher Injection 2017 Balta Lamb MD Single Allergy 12/24/ Administered Injection Christopher Injection 2017 Balta Lamb MD Single Allergy 12/17/ Administered Injection Christopher Injection 2017 Balta Lamb MD Single Allergy 12/10/ Administered Injection Christopher Injection 2017 Balta Lamb MD Single Immunizations Description No Information Available Vital Signs Date Vital Result Comment 07/17/2018 3:36pm BP Systolic 130 mmHg BP Diastolic 80 mmHg Height 70 inches 5'10" Weight 240.00 lb BMI (Body Mass Index) 34.4 kg/m2 Heart Rate 81 /min Respiratory Rate 18 /min O2 % BldC Oximetry 95 % 01/11/2018 1:36pm BP Systolic 130 mmHg BP Diastolic 82 mmHg Height 70 inches 5'10" Weight 255.00 lb BMI (Body Mass Index) 36.6 kg/m2 Heart Rate 87 /min Respiratory Rate 18 /min O2 % BldC Oximetry 96 % 10/26/2017 12:57pm BP Systolic 128 mmHg BP Diastolic 86 mmHg Height 70 inches 5'10" Weight 258.00 lb BMI (Body Mass Index) 37.0 kg/m2 Heart Rate 100 /min Body Temperature 96.9 F O2 % BldC Oximetry 94 % 09/07/2017 4:10pm Height 70 inches 5'10" Weight 258.00 lb BMI (Body Mass Index) 37.0 kg/m2 Heart Rate 102 /min Respiratory Rate 16 /min Body Temperature 96.7 F O2 % BldC Oximetry 98 % Results Description No Information Available Procedures Date Code Description Status 07/17/2018 27339 Allergy Injection Single Completed 07/17/2018 87151 Nitric Oxide Gas Determination Completed 07/17/2018 15060 Bronchodilation Responsiveness Spirometry Pre/Post Completed Bronchodil Adm 07/08/2018 14320 Allergy Injection Single Completed 07/01/2018 64242 Allergy Injection Single Completed 06/24/2018 05786 Allergy Injection Single Completed 06/17/2018 03016 Allergy Injection Single Completed 06/10/2018 32852 Allergy Injection Single Completed 06/03/2018 03625 Allergy Injection Single Completed 05/27/2018 91016 Allergy Injection Single Completed 05/22/2018 02394 Allergy Injection Single Completed 05/13/2018 84629 Allergy Injection Single Completed 05/10/2018 01067 Allergy Injection Single Completed 04/26/2018 57650 Allergy Injection Single Completed 04/17/2018 37956 Allergy Injection Single Completed 04/10/2018 20706 Allergy Injection Single Completed 04/03/2018 48880 Allergy Injection Single Completed 03/27/2018 97629 Allergy Injection Single Completed 03/20/2018 03687 Allergy Injection Single Completed 03/11/2018 23901 Allergy Injection Single Completed 03/04/2018 92491 Allergy Injection Single Completed 02/25/2018 52869 Allergy Injection Single Completed 02/18/2018 71858 Allergy Injection Single Completed 02/08/2018 87210 Allergy Injection Single Completed 02/01/2018 02049 Allergy Injection Single Completed 01/21/2018 58128 Allergy Injection Single Completed 01/14/2018 49241 Allergy Injection Single Completed 01/11/2018 29270 Allergy Tests Percutaneous W/ Allergenic Extracts Completed 01/09/2018 99355 Allergy Injection Single Completed 12/31/2017 38995 Allergy Injection Single Completed 12/24/2017 38740 Allergy Injection Single Completed 12/17/2017 63431 Allergy Injection Single Completed 12/10/2017 64873 Allergy Injection Single Completed 12/07/2017 55710 Allergy Antigens Single Or Multiple Completed 09/07/2017 05585 Nitric Oxide Gas Determination Completed 09/07/2017 74608 Allergy Tests Percutaneous W/ Allergenic Extracts Completed 09/07/2017 65808 Bronchodilation Responsiveness Spirometry Pre/Post Completed Bronchodil Adm Encounters Type Date Location Provider Dx Diagnosis Office Visit 07/17/2018 Cooper Mccrary J45.40 Moderate persistent 3:00p Fenst[place]acher, asthma, uncomplicated RPA-C J30.1 Allergic rhinitis due to pollen J30.89 Other allergic rhinitis B37.0 Candidal stomatitis Office Visit 01/11/2018 1:30p Cooper Lamb, Z91.018 Allergy to other MD foods K52.29 Other allergic and dietetic gastroenteritis and colitis Office Visit 10/26/2017 1:00p FAZAL Bennett J30.1 Allergic rhinitis due to pollen J30.89 Other allergic rhinitis J45.40 Moderate persistent asthma, uncomplicated Office Visit 09/07/2017 4:00p Cooper Lamb J30.1 Allergic rhinitis MD due to pollen J30.89 Other allergic rhinitis J45.40 Moderate persistent asthma, uncomplicated Plan of Treatment Future Appointment(s):07/22/2018 2:55 pm - Injection 1 at [id number]/17/2018 - Becky Rodriguez, [facility]-CJ45.40 Moderate persistent asthma, uncomplicatedNew Medication:Aerochamber Plus - use aerochamber as directed with your inhalers.Comments:Today's PFT is within normal limits. NIOX is 20ppb. Continue Flovent 110mcg as directed. I will prescribe Aerochamber to be used with Flovent. This should help reduce risk of reoccurring thrush. Continue ProAir as needed for breakthrough asthma symptoms.Follow up:6 months - w/PFT and NIOX prior to tuslmG15.1 Allergic rhinitis due to pollenComments:Continue Flonase as directed. I have recommended Rhinase Saline Gel to help with nasal dryness. A cool mist humidifier in the bedroom may also be helpful. Continue Clarinex as needed for breakthrough nasal allergy symptoms. Okay for patient to resume immunotherapy today. Dose has been adjusted.Follow up:6 months.J30.89 Other allergic ruzuvbcjM32.0 Candidal stomatitisNew Medication:Nystatin 755503 Unit/ML - Swish and swallow 5ml by mouth 4x daily x7 days. Retain in mouth as long as possible before swallowing.Comments:Continue good mouth rinsing technique following use of Flovent. Use Nystatin as directed. Use Flovent with Aerochamber.Follow up:If condition worsens.
--- OUTSIDE RECORDS SUMMARY | 2018-08-05 17:04 | XMS REPORT | Continuity of Care Document ---
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 Parul Berry MD Primary Care Physician Unavailable Payers Type Date Identification Numbers Payment Provider Subscriber Policy Number: [id number] BS [employer] Rigoberto Pastrana PayID: [id number] [address] [address] [place] [address] Advance Directives Description No Information Available Problems Date Description Provider Status Onset: 09/07/2017 Allergic rhinitis due to pollen Jhonatan Lamb MD Active Onset: 09/07/2017 Allergic rhinitis Jhonatan Lamb MD Active Onset: 09/07/2017 Uncomplicated moderate persistent Jhonatan Lamb MD Active asthma Onset: 01/11/2018 Dietetic gastroenteritis Jhonatan Lamb MD Active Onset: 01/11/2018 Allergy to other foods Jhonatan Lamb MD Active Family History Date Family Member(s) Problem(s) Comments [...] Form Strength Qnty SIG Indications Ordering Provider Prednisone 07/09 Active Tablets 10mg 18tab take 3 oph s tablets by Balta Lamb MD mouth twice a day for 3 days. take with food. Prednisone 05/03 Active Tablets 5mg 36tab 6 tablets s (30 mg) by Balta Lamb MD mouth twice a day x 3 days Proair HFA 09/07 Active Aerosol 108(90Bas 1unit 2 puffs J30.1 e) s every 4 as Balta Lamb MD mcg/Act needed Ranitidine HCL Active Tablets 150mg Unknown Flonase Active Suspension 50mcg/Act 15.80 2 puffs Christopher Allergy 0ml each Balta Lamb MD nostril every day Flovent HFA Active Aerosol 110mcg/Ac inhale 2 Unknown t puffs (220 mcg) by inhalation route 2 times per day Albuterol Active Nebulizer 0.63mg/3M Audrey, Sulfate / L MD Siobhan Vitamin D3 Active Capsules 51097Bzkv Take 1 Unknown Capsule By Mouth Once Weekly For 8 Weeks Clarinex 03/11 Hx Tablets 5mg 30tab one tablet s every in Balta Lamb MD - the 07/17 Fexofenadine 03/04 Hx Tablets 180mg 30tab take 1 opher HCL /2017 s tablet by Balta Lamb MD - mouth 07/17 as needed Qnasl 09/07 Hx Aerosol 80mcg/Act 8.700 2 puffs J30.1 /2017 gm each Balta Lamb MD - nostril 10/26 Xyzal Allergy 09/07 Hx Tablets 5mg 30tab take 1 J30.1 opher 24HR s tablet (5 Balta Lamb MD - mg) by 07/17 oral route once daily as needed Breo Ellipta 09/07 Hx Aerosol 200-25mcg 1unit inhale one J30.1 oph /2017 /Inh s puff once Balta Lamb MD - a day 01/11 Ventolin HFA Hx Aerosol 108(90Bas Sarai-Wh /0000 e) iteLuz Marinae - mcg/Act 01/11 Fluticasone Hx Suspension 50mcg/Act Jamal, Propionate MD Parul - 09/10 Mupirocin Hx Ointment 2% Jamal, MD Parul - 07/17 Afluria Hx Suspension Vladimir Nelson Quadrivalent MD Jess - 07/17 Oxycodone HCL Hx Tablets 5mg Unknown / - 07/17 Clindamycin Hx Capsules 300mg Unknown HCL / - 07/17 Triamcinolone Hx Cream 0.1% Apply [...] /0000 Capsule By - Mouth Two 07/17 Daily Azithromycin Hx Tablets 250mg Jamal, / MD Parul - 07/17 Oseltamivir Hx Capsules 75mg Jamal, Phosphate / MD Parul - 07/17 Medications Administered in Office Medication Date Status Form Strength Qnty SIG Indications Ordering Provider Allergy 07/08/ Administered Injection Christopher Injection 2017 [...] Single Allergy 05/27/ Administered Injection Christopher Injection 2018 Balta Lamb MD Single Allergy 05/22/ Administered Injection Christopher Injection 2017 Balta Lamb MD Single Allergy 05/13/ Administered Injection Christopher Injection 2017 Balta Lamb MD Single Allergy 05/10/ Administered Injection Christopher Injection 2018 Balta Lamb MD Single Allergy 04/26/ Administered Injection Christopher Injection 2018 Balta Lamb MD Single Allergy 04/17/ Administered Injection Christopher Injection 2017 Balta Lamb MD Single Allergy 04/10/ Administered Injection Christopher Injection 2017 Balta Lamb MD Single Allergy 04/03/ Administered Injection Christopher Injection 2018 Balta Lamb MD Single Allergy 03/27/ Administered Injection Christopher Injection 2017 Balta Lamb MD Single Allergy 03/20/ Administered Injection Christopher Injection 2018 Balta Lamb MD Single Allergy 03/11/ Administered Injection Christopher Injection 2018 Balta Lamb MD Single Allergy 03/04/ Administered Injection Christopher Injection 2018 Balta Lamb MD Single Allergy 02/25/ Administered Injection Christopher Injection 2017 Balta Lamb MD Single Allergy 02/18/ Administered Injection Christopher Injection 2018 Balta Lamb MD Single Allergy 02/08/ Administered Injection Christopher Injection 2018 Balta Lamb MD Single Allergy 02/01/ Administered Injection Christopher Injection 2018 Balta Lamb MD Single Allergy 01/21/ Administered Injection Christopher Injection 2018 Balta Lamb MD Single Allergy 01/14/ Administered Injection Christopher Injection 2018 Balta Lamb MD Single Allergy 01/09/ Administered Injection Christopher Injection 2017 Balta Labm MD Single Allergy 12/31/ Administered Injection Christopher Injection 2017 Balta Lamb MD Single Allergy 12/24/ Administered Injection Christopher Injection 2018 Balta Lamb MD Single Allergy 12/17/ Administered Injection Christopher Injection 2018 Balta Lamb MD Single Allergy 12/10/ Administered Injection Christopher Injection 2018 Balta Lamb MD Single Immunizations Description No [...] Information Available Procedures Date Code Description Status 07/08/2018 68026 Allergy Injection Single Completed 07/01/2018 38185 Allergy Injection Single Completed 06/24/2018 83797 Allergy Injection Single Completed 06/17/2018 92715 Allergy Injection Single Completed 06/10/2018 04540 Allergy Injection Single Completed 06/03/2018 55595 Allergy Injection Single Completed 05/27/2018 78898 Allergy Injection Single Completed 05/22/2018 36188 Allergy Injection Single Completed 05/13/2018 87826 Allergy Injection Single Completed 05/10/2018 62206 Allergy Injection Single Completed 04/26/2018 22105 Allergy Injection Single Completed 04/17/2018 59520 Allergy Injection Single Completed 04/10/2018 90910 Allergy Injection Single Completed 04/03/2018 47361 Allergy Injection Single Completed 03/27/2018 28638 Allergy Injection Single Completed 03/20/2018 94381 Allergy Injection Single Completed 03/11/2018 69808 Allergy Injection Single Completed 03/04/2018 54921 Allergy Injection Single Completed 02/25/2018 98758 Allergy Injection Single Completed 02/18/2018 64154 Allergy Injection Single Completed 02/08/2018 49383 Allergy Injection Single Completed 02/01/2018 66786 Allergy Injection Single Completed 01/21/2018 49542 Allergy Injection Single Completed 01/14/2018 19069 Allergy Injection Single Completed 01/11/2018 25784 Allergy Tests Percutaneous W/ Allergenic Extracts Completed 01/09/2018 56159 Allergy Injection Single Completed 12/31/2017 55073 Allergy Injection Single Completed 12/24/2017 51759 Allergy Injection Single Completed 12/17/2017 23391 Allergy Injection Single Completed 12/10/2017 58387 Allergy Injection Single Completed 12/07/2017 85493 Allergy Antigens Single Or Multiple Completed 09/07/2017 22980 Nitric Oxide Gas Determination Completed 09/07/2017 47919 Allergy Tests Percutaneous W/ Allergenic Extracts Completed 09/07/2017 24962 Bronchodilation Responsiveness Spirometry Pre/Post Completed Bronchodil Adm Encounters Type Date Location Provider Dx Diagnosis Office Visit 01/11/2018 Cooper Lamb, Z91.018 Allergy to other 1:30p foods K52.29 Other allergic and dietetic gastroenteritis and colitis Office Visit 10/26/2017 1:00p FAZAL Bennett J30.1 Allergic rhinitis due to pollen J30.89 Other allergic rhinitis J45.40 Moderate persistent asthma, uncomplicated Office Visit 09/07/2017 4:00p Cooper Lamb J30.1 Allergic rhinitis MD due to pollen J30.89 Other allergic rhinitis J45.40 Moderate persistent asthma, uncomplicated Plan of Treatment Future Appointment(s):07/22/2018 2:55 pm - Injection 1 at [place]
--- OUTSIDE RECORDS SUMMARY | 2018-08-05 17:04 | XMS REPORT | Continuity of Care Document ---
:1955 External Reference #:[id number] Author Name Nita Casas Care Team Providers Name Role Phone Jules Whitt MD Care Team Information Community Action Worker Unavailable Parul Berry MD Primary Care Physician Unavailable Payers Type Date Identification Numbers Payment Provider Subscriber Policy Number: [id number] [employer] Rigoberto Pastrana PayID: [id number] [address] [address] [place] [address] Expires: 2017 Policy Number: [facility] Rigoberto Pastrana [id number] PayID: [id number] [address] [address] [place] [address] Advance Directives Description No Information Available Problems Date Description Provider Status Onset: 04/10/2018 Obstructive sleep apnea Gilma Long DNP, RN, Active syndrome PATIENT CARE COORDINATOR-BC Onset: 04/10/2018 Hypoxemia Gilma Long DNP, RN, Active PATIENT CARE COORDINATOR-BC Onset: 04/10/2018 Body mass index 30+ - obesity Gilma Long DNP, RN, Active PATIENT CARE COORDINATOR-BC Onset: 04/10/2018 Mild persistent asthma Gilma Long DNP, RN, Active PATIENT CARE COORDINATOR-BC Family History Date Family Member(s) Problem(s) Comments Father Unknown Father due to Natural Causes () Mother rheumatic fever Mother due to CHF () Siblings 2 half siblings, medical hx unknown Social History Type Date Description Comments Sex Unknown Marital Status Significant Other 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 Tobacco Use Start: Unknown Never Smoked Cigarettes Smoking Status Reviewed: 07/11/18 Never Smoked Cigarettes ETOH Use Rarely consumes alcohol Tobacco Use Start: Unknown Patient has never smoked Recreational Drug Use Denies Drug Use Exercise Type/Frequency Exercises regularly Allergies, Adverse Reactions, Alerts Date Description Reaction Status Severity Comments 12/25/2017 Cipro Active 12/25/2017 Nexium Active 04/10/2018 Advair Throat felt scratching Active Moderate Throat Also Addison Like It Was Starting To Close Medications Medication Date Status Form Strength Qnty SIG Indications Ordering Provider Flovent HFA 06/06 Active Aerosol 110mcg/Ac 36gm 2 puffs twice t a day MD Audrey Albuterol 05/14 Active Nebulizer 0.63mg/3M 675ml 1 unit, nebl, J45.40 Siobhan L every 6 Audrey, hours, as MD needed Nebulizer 05/14 Active Device 1unit 1 unit J45.40 Siobhan s nebulization Audrey, with albuterol every 6 hours and as needed Ranitidine HCL Active Tablets 150mg Take 1 To 2 Unknown /0000 Tablets By Mouth Every Day Fluticasone Active Suspension 50mcg/Act 2 sprays qhs Jamal, Propionate /0000 Parul Sauceda MD Proair HFA Active Aerosol 108(90Bas 2 puffs prn Jamal, /0000 e) Parul erwin/Michael Sauceda MD Allergy Active 1 injection Unknown Injections /0000 per week Clarinex Active Tablets 5mg 1 by mouth Unknown /0000 every day as needed Prednisone Active 30mg start 1 tab by Unknown /0000 [id number] mouth twice a 7 day x3 days (started 07-09-18) Flovent HFA 05/02 Hx Aerosol 220mcg/Ac 36gm 2 puffs twice t daily, rinse Audrey, - mouth after 06/06 use. Xyzal 01/21 Hx Solution 2.5mg/5ML as directed Audrey - 04/09 Flovent HFA 01/09 Hx Aerosol 110mcg/Ac 36gm 2 puffs twice t a day Audrey, - 05/02 Escitalopram Hx Tablets 10mg Take 1 Tablet Unknown Oxalate /0000 By Mouth - Every Day 01/08 Immunizations Description No Information Available Vital Signs Date Vital Result Comment 07/11/2018 2:45pm Height 70.25 inches 5'10.25" Weight 248.38 lb 238 at home Heart Rate 92 /min BP Systolic Sitting 120 mmHg Lue large cuff BP Diastolic Sitting 80 mmHg Lue large cuff Respiratory Rate 16 /min O2 % BldC Oximetry 94 % BMI (Body Mass Index) 35.4 kg/m2 05/14/2018 1:26pm Height 70.25 inches 5'10.25" Weight 242.00 lb Heart Rate 90 /min BP Systolic Sitting 136 mmHg Lue large cuff BP Diastolic Sitting 88 mmHg Lue large cuff Respiratory Rate 16 /min O2 % BldC Oximetry 97 % On Ra BMI (Body Mass Index) 34.5 kg/m2 04/10/2018 12:42pm Height 70.25 inches 5'10.25" Weight 254.12 lb Heart Rate 76 /min BP Systolic Sitting 110 mmHg Lue large cuff BP Diastolic Sitting 76 mmHg Lue large cuff Respiratory Rate 16 /min O2 % BldC Oximetry 98 % BMI (Body Mass Index) 36.2 kg/m2 01/21/2018 1:41pm Height 70.25 inches 5'10.25" Weight 258.50 lb Heart Rate 92 /min BP Systolic Sitting 122 mmHg Rue large cuff BP Diastolic Sitting 82 mmHg Rue large cuff Respiratory Rate 16 /min O2 % BldC Oximetry 95 % BMI (Body Mass Index) 36.8 kg/m2 12/25/2017 1:44pm Height 70.25 inches 5'10.25" Weight 255.00 lb Heart Rate 76 /min BP Systolic Sitting 138 mmHg BP Diastolic Sitting 98 mmHg Respiratory Rate 14 /min O2 % BldC Oximetry 95 % BMI (Body Mass Index) 36.3 kg/m2 Neck Circumference in inches 17.5 Results Test Date Facility Test Result H/L Range Note Laboratory test [facility] Immunoglobulin E 24.3 kU/L <=[address] ([address]) [place] [address] [phone] CBC Auto Diff [facility] White Blood Count 8.7 10^3/ uL N 3.5-10.[address] [place] [address] [phone] Red Blood Count 5.21 10^6/uL N 4.00-5.40 Hemoglobin 15.3 g/dL N 14.0-18.0 Hematocrit 44 % N 42-52 Mean Corpuscular Volume 85 fL N 80-94 Mean Corpuscular Hemoglobin 29 pg N 27-31 Mean Corpuscular HGB Conc 35 g/dL N 31-36 Red Cell Distribution Width 14 % N 10.5-15 Platelet Count 257 10^3/uL N 150-450 Mean Platelet Volume 8.1 um3 N 7.4-10.4 Abs Neutrophils 5.8 10^3/uL N 1.5-7.7 Abs Lymphocytes 1.8 10^3/uL N 1.0-4.8 Abs Monocytes 0.8 10^3/uL N 0-0.8 Abs Eosinophils 0.2 10^3/uL N 0-0.6 Abs Basophils 0.1 10^3/uL N 0-0.2 Abs Nucleated RBC 0 10^3/uL Granulocyte % 67.0 % N 38-83 Lymphocyte % 21.1 % Low 25-47 Monocyte % 8.9 % High 0-7 Eosinophil % 2.1 % N 0-6 Basophil % 0.9 % N 0-2 Nucleated Red Blood Cells % 0 1 Test Performed by: [facility] [address] [place] [address] Procedures Date Code Description Status 01/08/2018 42638 Diffusing Capacity Completed 01/08/2018 67700 Plethysmography Determination Lung Volumes & Per Airway Completed Resist 01/08/2018 15834 Pulmonary Function><Bronchodil Completed 11/09/2017 11991 Holter Monitor Review (24 hr) review & interp only Completed 02/23/2012 53574 Polysomnography Sleep Staging 4+ Parameters W/Cpap Completed 02/23/2012 12300 Polysomnography Sleep Staging 4+ Parameters W/Cpap Completed 05/28/2007 53043 EKG, Interpretation Only Completed 05/28/2007 22631 EKG, Interpretation Only Completed Encounters Type Date Location Provider Dx Diagnosis Office Visit 07/11/2018 [facility] Siobhan Ventura J45.40 Moderate persistent 3:00p [facility] asthma, [place] [employer] Teacher uncomplicated G47.33 Obstructive sleep apnea (adult) (pediatric) E66.09 Other obesity due to excess calories Office Visit 05/14/2018 PulmonSandra J45.40 Moderate persistent 1:30p [facility] MD Audrey asthma, Bd [employer] Education Teacher uncomplicated G47.33 Obstructive sleep apnea (adult) (pediatric) E66.09 Other obesity due to excess calories Office Visit 04/10/2018 Pulmonology And Gilma G47.33 Obstructive sleep 1:00p [facility] VERONA Long, RN, apnea (adult) [facility] PATIENT CARE COORDINATOR- (pediatric) J45.30 Mild persistent asthma, uncomplicated R09.02 Hypoxemia Z68.36 Body mass index (BMI) 36.0-36.9, adult Office Visit 01/21/2018 [facility] Siobhan J45.30 Mild persistent 1:15p [facility] MD Audrey asthma, [facility] uncomplicated G47.33 Obstructive sleep apnea (adult) (pediatric) E66.09 Other obesity due to excess calories Office Visit 12/25/2017 2:00p [facility] Siobhan G47.33 Obstructive sleep [facility] MD Audrey apnea (adult) [facility] (pediatric) J45.909 Unspecified asthma, uncomplicated K21.9 Gastro-esophageal reflux disease without esophagitis E66.09 Other obesity due to excess calories Z68.36 Body mass index (BMI) 36.0-36.9, adult Office Visit 03/08/2012 3:41p Vale Perez 327.23 Obstructive [facility] Pediatric Plan of Treatment Future Appointment(s):12/30/2018 3:30 pm - Siobhan Ventura MD at [facility]08/26/2018 1:45 pm - Siobhan Ventura MD at [facility]07/11/2018 - Siobhan Ventura MDJ45.40 Moderate persistent asthma, uncomplicatedFollow up:6 [id number] Obstructive sleep apnea (adult) (pediatric)E66.09 Other obesity due to excess calories
[2018-08-05 17:09] LABS: ABS Basophils 0.1 10^3/ul (0-0.2); ABS Eosinophils 0.1 10^3/ul (0-0.6); ABS Lymphocytes 1.8 10^3/ul (1.0-4.8); ABS Monocytes 0.6 10^3/ul (0-0.8); ABS Neutrophils 5.1 10^3/ul (1.5-7.7); ABS Nucleated RBC 0.1 10^3/ul; Eosinophil % 1.3 %; Hematocrit 45 % (42-52); Hemoglobin 15.8 g/dl (14.0-18.0); Lymphocyte % 23.7 %; Mean Corpuscular HGB Conc 36 g/dl (31-36); Mean Corpuscular Hemoglobin 30 pg (27-31); Mean Corpuscular Volume 85 fL (80-94); Mean Platelet Volume 7.8 fL (7.4-10.4); Nucleated Red Blood Cells % 0.8; Platelet Count 297 10^3/ul (150-450); Red Blood Count 5.25 10^6/ul (4.00-5.40); Red Cell Distribution Width 14 % (10.5-15); White Blood Count 7.8 10^3/ul (3.5-10.8)
[2018-08-05 17:13] LABS: Activated Partial Thrombo Time 28.4 seconds (26.0-36.3); INR 1.02 (0.77-1.02)
[2018-08-05 17:22] LABS: Albumin 4.4 g/dL (3.2-5.2); Albumin/Globulin Ratio 1.6 (1-3); BUN/Creatinine Ratio 9.8 (8-20); Calcium 9.7 mg/dL (8.6-10.3); EGFR Non-African American 83.6 (>60); Globulin 2.7 g/dL (2-4); Magnesium 1.9 mg/dL (1.9-2.7); Potassium 3.2 mmol/L (3.5-5.0); Total Bilirubin 1.1 mg/dL (0.2-1.0); Total Protein 7.1 g/dL (6.4-8.9)
[2018-08-05 17:56] VITALS: BP 141/87
[2018-08-05] MEDS ORDERED: Potassium Chlor TAB* 20 MEQ TAB.ER PO ONE (17:57)
[2018-08-05 18:05] LABS: TSH (Thyroid Stimulating Horm) 0.66 mcIU/mL (0.34-5.60)
== END 2018-08-05 18:11 | disposition home or self-care (01) ==
LOC: ED 16:28
DX: R07.9 Chest pain, unspecified (principal); R00.2 Palpitations; E87.6 Hypokalemia; I49.3 Ventricular premature depolarization; R00.0 Tachycardia, unspecified; K21.9 Gastro-esophageal reflux disease without esophagitis; R73.9 Hyperglycemia, unspecified
CPT/HCPCS: 36415; 71045; 80053; 82550; 82553; 83605; 83735; 83880; 84443; 84484; 85025; 85379; 85610; 85730; 93005; 96360; 99282; A9270-GY

== ENCOUNTER 2018-10-18 18:28 | Emergency (ER) | payer BC ==
--- NOTE | 2018-10-18 20:12 | UC ---
Complaint Male HPI - HPI Summary HPI Summary: 63 y/o male presents to the urgent care c/o right sided groin pain at penis and testicles. a spot that is point tender . thought posible hernia . did start an exercise program yesterday on an cardio machine - History of Current Complaint Chief Complaint: UCGU Stated Complaint: GROIN PAIN Time Seen by Provider: 10/18/18 20:09 Hx Obtained From: Patient Onset/Duration: Sudden Onset, Lasting Days - 1 days, Still Present Timing: Intermittent - w/ certain movements Severity Initially: Mild Severity Currently: Mild Pain Intensity: 2 Pain Scale Used: 0-10 Numeric Location: Other - Rt inguinal area pain w/ certain movement Character: Sharp Aggravating Factor(s): Other - movements Alleviating Factor(s): Ice Associated Signs And Symptoms: Negative: Back Pain, Fever, Blood in Stool, Rectal Pain, Nausea, Penile Swelling, Penile Discharge - Risk Factors Testicular Torsion: Negative - Allergies/Home Medications Allergies/Adverse Reactions: Allergies Allergy/AdvReac Type Severity Reaction Status Date / Time fluticasone Allergy Severe THROAT Verified 10/18/18 18:44 [From Advair Diskus] TIGHTENING salmeterol Allergy Severe THROAT Verified 10/18/18 18:44 [From Advair Diskus] TIGHTENING ciprofloxacin Allergy Unknown Verified 10/18/18 18:44 Reaction Details esomeprazole [From Nexium] Allergy Rash Verified 10/18/18 18:44 PMH/Surg Hx/FS Hx/Imm Hx Previously Healthy: Yes Other Cardiovascular History: PAC Respiratory History: Asthma Other Respiratory History: Sleep apnea GI/ History: Gastroesophageal Reflux Other Cancer History: Prostatitis - Surgical History Surgical History: Yes Surgery Procedure, Year, and Place: left inguinal hernia repair. tonsillectomy - Family History Known Family History: Positive: Cardiac Disease Negative: Hypertension, Respiratory Disease - Social History Occupation: Employed Full-time Lives: With Family Alcohol Use: Occasionally Substance Use Type: None Smoking Status (MU): Never Smoked Tobacco Review of Systems All Other Systems Reviewed And Are Negative: Yes Constitutional: Positive: Negative Skin: Positive: Negative Eyes: Positive: Negative ENT: Positive: Negative Respiratory: Positive: Negative Cardiovascular: Positive: Negative Gastrointestinal: Positive: Negative Genitourinary: Positive: Other - Rt side inguinal area pain w/ certain movements Motor: Positive: Negative Neurovascular: Positive: Negative Musculoskeletal: Positive: Negative Neurological: Positive: Negative Psychological: Positive: Negative Is Patient Immunocompromised?: No Physical Exam - Summary Physical Exam Summary: : Normal external genitalia of (un)circumcised male /toddler/child/ adult. No inguinal tenderness, lesions, lymphadenopathy. No direct or indirect hernia. Foreskin retracts easily, glans penis normal. Urinary meatus clear without discharge, erythema. Penile shaft without lesions, swelling, tenderness. Scrotum without swelling, erythema, tenderness, induration, crepitus. Testis in normal position, not high riding, nontender. No localized tenderness over upper pole of testis. Transillumination, cremasteric reflex, blue dot sign Triage Information Reviewed: Yes Vital Signs: Initial Vital Signs Temp 97.5 F 10/18/18 18:37 Pulse 86 10/18/18 18:37 Resp 18 10/18/18 18:37 BP 142/97 10/18/18 18:37 Pulse Ox 99 10/18/18 18:37 Complaint Male Course/Dx - Differential Dx/Diagnosis Differential Diagnosis/HQI/PQRI: Epididymitis, Incarcerated Hernia, Phimosis, Prostatitis, Testicular Torsion, Urinary Tract Infection Provider Diagnosis: Right inguinal pain, Elevated BP without diagnosis of hypertension Discharge - Sign-Out/Discharge Documenting (check all that apply): Patient Departure - d/C home All imaging exams completed and their final reports reviewed: No Studies - Discharge Plan Condition: Stable Disposition: HOME Patient Education Materials: Groin Pain (ED) Referrals: Parul Berry MD [Primary Care Provider] - 2 Days Herber Ken MD [Medical Doctor] - If Needed Additional Instructions: 1-Please take ibuprofen PO q6-8hrs prn as instructed after meals if pain returns. avoid strenuous exercise, or heavy lifting. 2- UA; negative. At thsi moment no inguinal, testicular or femoral hernia palpated. At this moment no ultrasound available. If symptoms return please return to the urgent care or f/u w/ your PCP or Urologist Dr Powell for further evaluation and treatment. 3- Your BP is elevated today. please decrease salt in your diet, monitor BP and if it continues to be elevated please f/u with your PCP for further management. - Billing Disposition and Condition Condition: STABLE Disposition: Home
[2018-10-18 20:50] VITALS: BP 134/92
== END 2018-10-18 20:50 | disposition home or self-care (01) ==
LOC: UCEAST 18:28
DX: R10.31 Right lower quadrant pain (principal); R03.0 Elevated blood-pressure reading, without diagnosis of hypertension; J45.909 Unspecified asthma, uncomplicated; Z88.1 Allergy status to other antibiotic agents; Z88.8 Allergy status to other drugs, medicaments and biological substances
CPT/HCPCS: 81003; 99211; G0463